=== PATIENT | male | born 1980 | race Caucasian/White ===

== ENCOUNTER 2017-10-16 09:28 | Emergency (ER) | payer OTHER ==
--- NOTE | 2017-10-16 11:00 | ER ---
Nurse's Notes [facility] Name: Jacinto Whitaker Age: 37 yrs Sex: Male : 1980 Arrival Date: 10/16/2017 Time: 09:31 Bed 7 Private MD: Diagnosis: Low back pain;Radiculopathy, lumbar region Presentation: 10/16 09:55 Presenting complaint: Patient states: Woke with low back pain 3 days ago, went to [facility] hb x 2, pain is getting worse. Pain radiates down right leg. Denies injury. Hx back sx 1 year ago. Transition of care: patient was not received from another setting of care. Onset of symptoms is unknown. Care prior to arrival: Medication(s) given: gabapentin 200 mg at 0800. 09:55 Method Of Arrival: Ambulatory 09:55 Acuity: DIANA 4 hb Historical: - Allergies: 09:58 No Known Allergies; hb - Home Meds: 09:58 metoprolol tartrate 100 mg Oral tab 1 tab once daily [Active]; Klonopin 0.5 mg Oral tab hb as needed [Active]; losartan 50 mg oral tab once daily [Active]; - PMHx: 09:58 Hypertension; Panic Attacks; hb - PSHx: 09:58 Back; hb - Immunization history:: Adult Immunizations up to date. - Social history:: Smoking status: Patient/guardian denies using tobacco. Screenin:20 Abuse screen: Denies threats or abuse. Denies injuries from another. Nutritional ph screening: No deficits noted. Tuberculosis screening: No symptoms or risk factors identified. Fall Risk None identified. Assessment: 10:40 General: Appears in no apparent distress. comfortable, slender, well groomed, Behavior ph is calm, cooperative, appropriate for age, Denies fever, feeling ill. Pain: Complains of pain in low back area and right low back Pain radiates to right leg. Neuro: Level of Consciousness is awake, alert, obeys commands, Oriented to person, place, time, situation, Denies paresthesias numbness. Cardiovascular: Capillary refill < 3 seconds in bilateral fingers toes Patient's skin is warm and dry. Respiratory: Airway is patent Respiratory effort is even, unlabored. Derm: Skin is intact, is healthy with good turgor, Skin is pink, warm \T\ dry. Musculoskeletal: Circulation, motion, and sensation intact. Range of motion: intact in all extremities, Swelling absent. 11:30 Reassessment: Patient appears in no apparent distress at this time. Patient and/or ph family updated on plan of care and expected duration. Pain level reassessed. Patient is alert, oriented x 3, equal unlabored respirations, skin warm/dry/pink. Pt discharged home. Vital Signs: 09:57 BP 134 / 89; Pulse 79; Resp 18; Temp 98; Pulse Ox 100% ; Weight 99.79 kg; Height 6 ft. hb (182.88 cm); Pain 10/10; 11:33 BP 128 / 78; Pulse 71; Resp 18; Temp 98.3; Pulse Ox 99% on R/A; ph 09:57 Body Mass Index 29.84 (99.79 kg, 182.88 cm) hb ED Course: 09:31 Patient arrived in ED. mr 09:56 Triage completed. hb 09:58 Arm band placed on right wrist. hb 10:20 Cait Manzo, RN is Primary Nurse. ph 10:20 Patient has correct armband on for positive identification. Bed in low position. Call ph light in reach. Side rails up X 1. Pulse ox on. NIBP on. 10:21 Frandy Edmond PA is PHCP. jr8 10:21 Vinicius Syed MD is Attending Physician. jr8 11:32 No provider procedures requiring assistance completed. Patient did not have IV access ph during this emergency room visit. Administered Medications: No medications were administered Outcome: 10:59 Discharge ordered by . jr8 11:32 Discharged to home ambulatory. ph 11:32 Condition: good 11:32 Discharge instructions given to patient, Instructed on discharge instructions, follow up and referral plans. medication usage, Demonstrated understanding of instructions, follow-up care, medications, Prescriptions given X 3. 11:33 Patient left the ED. ph Signatures: Monika Mesa mr Frandy Edmond PA PA jrCait Wesley RN RN Alexandra Gonzales RN RN Corrections: (The following items were deleted from the chart) 09:57 09:55 Presenting complaint: Patient states: Woke with sudden low back pain 3 days ago, hb went to chiro x 2, pain is getting worse. Pain radiates down right leg. Denies injury. Hx back sx hb
--- NOTE | 2017-10-16 11:00 | EDPHYS ---
Physician Documentation [facility] Name: Jacinto Whitaker Age: 37 yrs Sex: Male : 1980 Arrival Date: 10/16/2017 Time: 09:31 Bed 7 Private MD: ED Physician Vinicius Syed HPI: 10/16 11:12 This 37 yrs old Male presents to ER via Ambulatory with complaints of Back jr8 Pain. 11:12 The patient presents with pain that is acute, with no known mechanism of injury. The jr8 symptoms are located in the low back. Onset: The symptoms/episode began/occurred acutely, 3 day(s) ago, and became worse and became persistent. The pain radiates. Associated signs and symptoms: The patient has no apparent associated signs or symptoms. The problem was sustained from unknown cause. Modifying factors: The patient symptoms are alleviated by rest, specific position, the patient symptoms are aggravated by walking. Severity of symptoms: At their worst the symptoms were moderate, in the emergency department the symptoms have improved. The patient has not experienced similar symptoms in the past. The patient has not recently seen a physician. 11:12 Patient saw chiropractor 2 days ago. Had plain films completed along with adjustment jr8 but still with pain . Historical: - Allergies: 09:58 No Known Allergies; hb - Home Meds: 09:58 metoprolol tartrate 100 mg Oral tab 1 tab once daily [Active]; Klonopin 0.5 mg Oral tab hb as needed [Active]; losartan 50 mg oral tab once daily [Active]; - PMHx: 09:58 Hypertension; Panic Attacks; hb - PSHx: 09:58 Back; hb - Immunization history:: Adult Immunizations up to date. - Social history:: Smoking status: Patient/guardian denies using tobacco. ROS: 11:12 Eyes: Negative for injury, pain, redness, and discharge, ENT: Negative for injury, jr8 pain, and discharge, Neck: Negative for injury, pain, and swelling, Cardiovascular: Negative for chest pain, palpitations, and edema, Respiratory: Negative for shortness of breath, cough, wheezing, and pleuritic chest pain, Abdomen/GI: Negative for abdominal pain, nausea, vomiting, diarrhea, and constipation, MS/Extremity: Negative for injury and deformity, Skin: Negative for injury, rash, and discoloration, Neuro: Negative for headache, weakness, numbness, tingling, and seizure. 11:12 Back: Positive for decreased range of motion, pain with movement, radiated pain, of the low back area. Exam: 11:12 Cardiovascular: Regular rate and rhythm with a normal S1 and S2. No gallops, murmurs, jr8 or rubs. Normal PMI, no JVD. No pulse deficits. Respiratory: Lungs have equal breath sounds bilaterally, clear to auscultation and percussion. No rales, rhonchi or wheezes noted. No increased work of breathing, no retractions or nasal flaring. Abdomen/GI: Soft, non-tender, with normal bowel sounds. No distension or tympany. No guarding or rebound. No evidence of tenderness throughout. Skin: Warm, dry with normal turgor. Normal color with no rashes, no lesions, and no evidence of cellulitis. MS/ Extremity: Pulses equal, no cyanosis. Neurovascular intact. Full, normal range of motion. Neuro: Awake and alert, GCS 15, oriented to person, place, time, and situation. Cranial nerves II-XII grossly intact. Motor strength 5/5 in all extremities. Sensory grossly intact. Cerebellar exam normal. Normal gait. 11:12 Back: pain, that is moderate, ROM is painful, with rotation to the right, with rotation to the left, with flexion, normal spinal alignment noted, CVA tenderness, is absent, muscle spasm, is not present, Straight leg raises: of both lower extremities does not illicit pain, no vertebral tenderness noted . Vital Signs: 09:57 BP 134 / 89; Pulse 79; Resp 18; Temp 98; Pulse Ox 100% ; Weight 99.79 kg; Height 6 ft. hb (182.88 cm); Pain 10/10; 11:33 BP 128 / 78; Pulse 71; Resp 18; Temp 98.3; Pulse Ox 99% on R/A; ph 09:57 Body Mass Index 29.84 (99.79 kg, 182.88 cm) hb MDM: 10:21 Patient medically screened. jr8 10:58 Data reviewed: vital signs, nurses notes, and as a result, I will discharge patient. jr8 Data interpreted: Pulse oximetry: on room air is 100 %. Interpretation: normal. Counseling: I had a detailed discussion with the patient and/or guardian regarding: the historical points, exam findings, and any diagnostic results supporting the discharge/admit diagnosis, the need for outpatient follow up, a neurosurgeon, to return to the emergency department if symptoms worsen or persist or if there are any questions or concerns that arise at home. 11:12 ED course: Discussed with patient that he needs to rest with minimal lifting for the jr8 next 7-10 days. To utilize heating pads along with the prescribed medications. To f/u after that point if still in pain for MRI of low back . Administered Medications: No medications were administered Disposition: 13:28 Co-signature as Attending Physician, Vinicius Syed MD I agree with the assessment and kdr plan of care. Disposition: 10/16/17 10:59 Discharged to Home. Impression: Low back pain, Radiculopathy, lumbar region. - Condition is Stable. - Discharge Instructions: Back Pain, Adult, Back Exercises, [id number], Heat Therapy. - Prescriptions for Ibuprofen 800 mg Oral Tablet - take 1 tablet by ORAL route every 12 hours As needed take with food; 20 tablet. Cyclobenzaprine 10 mg Oral Tablet - take 1 tablet by ORAL route every 8 hours As needed; 30 tablet. Tramadol 50 mg Oral Tablet - take 1 tablet by ORAL route every 8 hours as needed; 20 tablet. - Medication Reconciliation Form, Thank You Letter, Antibiotic Education, Prescription Opioid Use, Work release form form. - Follow up: Private Physician; When: 7 - 10 days; Reason: Recheck today's complaints, Continuance of care, Re-evaluation by your physician. - Problem is new. - Symptoms have improved. Signatures: Vinicius Syed MD MD [facility] Frandy Edmond PA ME jr8 Cait Manzo RN RN Alexandra Gonzales, RN RN
== END 2017-10-16 11:33 | disposition home or self-care (01) ==
LOC: ER 09:28
DX: M54.16 Radiculopathy, lumbar region (principal); I10 Essential (primary) hypertension
CPT/HCPCS: 99283

== ENCOUNTER 2018-04-02 22:54 | Emergency (ER) | payer OTHER ==
[2018-04-02] MEDS ORDERED: NA CHLORIDE 0.9% 0 ML ONE (23:20)
[2018-04-02] MEDS ORDERED: NA CHLORIDE 0.9% 1,000 ML ONE (23:22)
[2018-04-02] MEDS ORDERED: ONDANSETRON 4 MG/2 ML VIAL ONE (23:24)
[2018-04-02] MEDS ORDERED: NA CHLORIDE 0.9% 500 ML ONE (23:37)
[2018-04-02] MEDS ORDERED: METOCLOPRAMIDE 10 MG/2mL INJ ONE (23:37)
[2018-04-02 23:53] LABS: Arterial Blood Carboxyhemoglob 1.1 % (0-1.5); Blood Gas Oxyhemoglobin 84.9 % (94-97)
[2018-04-03 00:22] LABS: Absolute Lymphocytes (CBC) 0.6 K/uL (0.7-4.9); Absolute Monocytes 0.8 K/uL (0.1-1.3); Absolute Neutrophil 8.1 K/uL (1.8-8.0); Basophils % 0.2 % (0-1.3); Eosinophils % 2.6 % (0-4.4); Hematocrit 49.4 % (39.6-49.0); Lymphocytes % 5.9 % (15.3-44.8); MCH 31.4 pg (27.0-35.0); MCV 89.9 fL (80-100); MPV 9.3 fL (7.6-11.3); Monocytes % 8.1 % (3.3-12.3)
[2018-04-03 00:40] LABS: Albumin 4.1 g/dL (3.4-5.0); Bilirubin Direct 0.2 mg/dL (0-0.2); Bilirubin Total 0.9 mg/dL (0.2-1.0); Potassium 3.9 mmol/L (3.5-5.1); Protein, Total 7.6 g/dL (6.4-8.2)
[2018-04-03] MEDS ORDERED: NA CHLORIDE 0.9% 1,000 ML ONE (00:56)
--- NOTE | 2018-04-03 02:11 | ER ---
Nurse's Notes [facility] Name: Jacinto Whitaker Age: 38 yrs Sex: Male : 1980 Arrival Date: 04/02/2018 Time: 22:54 Bed 26 Private MD: Nestor Siegel Diagnosis: Vomiting, unspecified;Diarrhea, unspecified;Dehydration Presentation: 04/02 23:08 Presenting complaint: Patient states: "I HAVE BEEN VOMITING EVERY 15 MINUTES. AND IT rv COMES AT BOTH ENDS.". Transition of care: patient was not received from another setting of care. Onset of symptoms was April 02, 2018 at 18:00. Risk Assessment: Do you want to hurt yourself or someone else? Patient reports no desire to harm self or others. Initial Sepsis Screen: Does the patient meet any 2 criteria? No. Patient's initial sepsis screen is negative. Does the patient have a suspected source of infection? No. Patient's initial sepsis screen is negative. Care prior to arrival: None. 23:08 Method Of Arrival: Ambulatory rv 23:08 Acuity: DIANA 3 rv Triage Assessment: 23:12 General: Appears in no apparent distress. uncomfortable, Behavior is calm, cooperative. rv Pain: Complains of pain in abdomen. Historical: - Allergies: 23:11 No Known Allergies; rv - Home Meds: 23:11 metoprolol tartrate 100 mg Oral tab 1 tab once daily [Active]; losartan 50 mg Oral tab rv once daily [Active]; Klonopin 0.5 mg Oral tab as needed [Active]; - PMHx: 23:11 Hypertension; Panic Attacks; rv - PSHx: 23:11 NECK SURGERY; Disc surgery; rv - Immunization history:: Adult Immunizations up to date. - Social history:: Smoking status: Patient/guardian denies using tobacco, never smoked. - Ebola Screening: : Patient negative for fever greater than or equal to 101.5 degrees Fahrenheit, and additional compatible Ebola Virus Disease symptoms Patient denies exposure to infectious person Patient denies travel to an Ebola-affected area in the 21 days before illness onset. Screenin:12 Abuse screen: Denies threats or abuse. Denies injuries from another. Nutritional rv screening: No deficits noted. Tuberculosis screening: No symptoms or risk factors identified. Fall Risk None identified. Assessment: 23:12 General: Appears in no apparent distress. uncomfortable, Behavior is calm, cooperative. rv Pain: Complains of pain in abdomen. Neuro: Level of Consciousness is awake, alert, obeys commands, Oriented to person, place, time, situation. Cardiovascular: Capillary refill < 3 seconds. Respiratory: Airway is patent. GI: Bowel sounds present X 4 quads. Abd is soft and non tender X 4 quads. : No signs and/or symptoms were reported regarding the genitourinary system. EENT: No signs and/or symptoms were reported regarding the EENT system. Derm: Skin is intact. 04/03 00:27 Reassessment: Patient appears in no apparent distress at this time. Patient and/or rv family updated on plan of care and expected duration. Pain level reassessed. Patient is alert, oriented x 3, equal unlabored respirations, skin warm/dry/pink. PATIENT FEELS BETTER. AWAITING LAB RESULTS. General:. 01:49 Reassessment: Patient appears in no apparent distress at this time. Patient and/or rv family updated on plan of care and expected duration. Pain level reassessed. Patient is alert, oriented x 3, equal unlabored respirations, skin warm/dry/pink. Vital Signs: 04/02 23:10 BP 106 / 77; Pulse 101; Pulse Ox 99% on R/A; Weight 95.25 kg (R); rv 23:10 Temp 97.7(O); rv 04/03 00:26 BP 111 / 73; Pulse 104; Pulse Ox 96% on R/A; rv 01:46 BP 93 / 66; Pulse 103; Pulse Ox 100% on R/A; rv ED Course: 04/02 22:54 Patient arrived in ED. am2 22:55 Nestor Siegel MD is Private Physician. am2 23:01 Sue Melgar FNP-C is [facility]. snw 23:01 Bradley Bain MD is Attending Physician. snw 23:10 Triage completed. rv 23:12 Patient has correct armband on for positive identification. Bed in low position. Call rv light in reach. Side rails up X 1. Pulse ox on. NIBP on. 23:13 Emesis basin given. rv 23:13 Inserted saline lock: 20 gauge in right antecubital area, using aseptic technique. rv Blood collected. 04/03 02:09 Nestor Siegel MD is Referral Physician. snw 02:20 IV discontinued, bleeding controlled, No redness/swelling at site. Pressure dressing rv applied. 02:20 No provider procedures requiring assistance completed. rv Administered Medications: 04/02 23:20 Drug: Zofran 4 mg Route: IVP; Site: right antecubital; rv 04/03 00:52 Follow up: Response: No adverse reaction; Nausea is decreased rv 04/02 23:21 Drug: NS 0.9% 1000 ml Route: IV; Rate: 1 bolus; Site: right antecubital; rv 04/03 00:53 Follow up: IV Status: Completed infusion rv 04/02 23:33 Drug: Reglan 10 mg Route: IVP; Site: right antecubital; rv 04/03 00:51 Follow up: Response: No adverse reaction rv 00:51 Drug: NS 0.9% 500 ml Route: IV; Rate: bolus; Site: right antecubital; rv Outcome: 02:10 Discharge ordered by . snw 02:20 Discharged to home ambulatory. rv 02:20 Condition: improved 02:20 Discharge instructions given to patient, Instructed on discharge instructions, follow up and referral plans. medication usage, Demonstrated understanding of instructions, follow-up care, medications, Prescriptions given X 2. 02:21 Patient left the ED. rv Signatures: Sue Melgar, SITE RELIABILITY ENGINEER-C SITE RELIABILITY ENGINEER-Csnw Ana Johnston am2 Reji Muir, RN RN rv
--- NOTE | 2018-04-03 02:11 | EDPHYS ---
Physician Documentation [facility] Name: Jacinto Whitaker Age: 38 yrs Sex: Male : 1980 Arrival Date: 04/02/2018 Time: 22:54 Bed 26 Private MD: Nestor Siegel ED Physician Bradley Bain HPI: 04/02 23:35 This 38 yrs old Male presents to ER via Ambulatory with complaints of snw Abdominal Pain, Nausea/Vomiting. 23:35 The patient presents with severe N/V/D since 0600. Onset: The symptoms/episode snw began/occurred suddenly, at 06:00. The symptoms do not radiate. Associated signs and symptoms: Pertinent positives: nausea, vomiting, and diarrhea, Pertinent negatives: fever. The symptoms are described as crampy. Severity of pain: At its worst the pain was very mild "sore". The patient has not experienced similar symptoms in the past. The patient has not recently seen a physician. no ill contacts, pt thinks he may have eaten something bad. Historical: - Allergies: 23:11 No Known Allergies; rv - Home Meds: 23:11 metoprolol tartrate 100 mg Oral tab 1 tab once daily [Active]; losartan 50 mg Oral tab rv once daily [Active]; Klonopin 0.5 mg Oral tab as needed [Active]; - PMHx: 23:11 Hypertension; Panic Attacks; rv - PSHx: 23:11 NECK SURGERY; Disc surgery; rv - Immunization history:: Adult Immunizations up to date. - Social history:: Smoking status: Patient/guardian denies using tobacco, never smoked. - Ebola Screening: : Patient negative for fever greater than or equal to 101.5 degrees Fahrenheit, and additional compatible Ebola Virus Disease symptoms Patient denies exposure to infectious person Patient denies travel to an Ebola-affected area in the 21 days before illness onset. ROS: 23:30 Constitutional: Negative for fever, chills, and weight loss, Eyes: Negative for injury, snw pain, redness, and discharge, ENT: Negative for injury, pain, and discharge, Neck: Negative for injury, pain, and swelling. 23:30 Cardiovascular: Negative for chest pain, palpitations, and edema, Respiratory: Negative for shortness of breath, cough, wheezing, and pleuritic chest pain, Abdomen/GI: Negative for abdominal pain, + severe nausea, vomiting, and diarrhea, no constipation, Back: Negative for injury and pain, : Negative for injury, bleeding, discharge, and swelling, MS/Extremity: Negative for injury and deformity, Skin: Negative for injury, rash, and discoloration, Neuro: Negative for headache, weakness, numbness, tingling, and seizure. 23:30 Cardiovascular: Positive for Exam: 23:27 Constitutional: This is a well developed, well nourished patient who is awake, alert, snw and in mild distress. Smells strongly of ketones Head/Face: Normocephalic, atraumatic. Eyes: Pupils equal round and reactive to light, extra-ocular motions intact. Lids and lashes normal. Conjunctiva and sclera are non-icteric and not injected. Cornea within normal limits. Periorbital areas with no swelling, redness, or edema. ENT: Nares patent. No nasal discharge, no septal abnormalities noted. Tympanic membranes are normal and external auditory canals are clear. Oropharynx with no redness, swelling, or masses, exudates, or evidence of obstruction, uvula midline. Mucous membranes moist. Neck: Trachea midline, no thyromegaly or masses palpated, and no cervical lymphadenopathy. Supple, full range of motion without nuchal rigidity, or vertebral point tenderness. No Meningismus. Chest/axilla: Normal chest wall appearance and motion. Nontender with no deformity. No lesions are appreciated. 23:27 Back: No spinal tenderness. No costovertebral tenderness. Full range of motion. Skin: Warm, dry with normal turgor. Normal color with no rashes, no lesions, and no evidence of cellulitis. MS/ Extremity: Pulses equal, no cyanosis. Neurovascular intact. Full, normal range of motion. Neuro: Awake and alert, GCS 15, oriented to person, place, time, and situation. Cranial nerves II-XII grossly intact. Motor strength 5/5 in all extremities. Sensory grossly intact. Cerebellar exam normal. Normal gait. 23:27 Cardiovascular: Rate: tachycardic, Heart sounds: normal. 23:27 Respiratory: the patient does not display signs of respiratory distress, Respirations: shallow respirations, that is moderate, Breath sounds: are clear throughout, tachypnea. 23:27 Abdomen/GI: Inspection: abdomen appears normal, Bowel sounds: normal, Palpation: abdomen is soft and non-tender, in all quadrants. Vital Signs: 23:10 BP 106 / 77; Pulse 101; Pulse Ox 99% on R/A; Weight 95.25 kg (R); rv 23:10 Temp 97.7(O); rv 04/03 00:26 BP 111 / 73; Pulse 104; Pulse Ox 96% on R/A; rv 01:46 BP 93 / 66; Pulse 103; Pulse Ox 100% on R/A; rv MDM: 04/02 23:14 Patient medically screened. w 04/03 02:08 Data reviewed: vital signs, nurses notes. Data interpreted: Pulse oximetry: on room air snw is 100 %. Interpretation: normal. Counseling: I had a detailed discussion with the patient and/or guardian regarding: the historical points, exam findings, and any diagnostic results supporting the discharge/admit diagnosis, lab results, the need for outpatient follow up, to return to the emergency department if symptoms worsen or persist or if there are any questions or concerns that arise at home. Response to treatment: the patient's symptoms have resolved after treatment, nausea gone, + po in ED. Special discussion: Based on the history and exam findings, there is no indication for further emergent testing or inpatient evaluation. I discussed with the patient/guardian the need to see the primary care provider for further evaluation of the symptoms. 04/02 23:16 Order name: Amylase, Serum; Complete Time: 00:41 snw 04/02 23:16 Order name: Basic Metabolic Panel; Complete Time: 00:41 w 04/02 23:16 Order name: CBC with Diff; Complete Time: 00:25 w 04/02 23:16 Order name: Creatinine for Radiology; Complete Time: 00:41 w 04/02 23:16 Order name: Hepatic Function; Complete Time: 00:41 w 04/02 23:16 Order name: Lipase; Complete Time: 00:41 w 04/02 23:16 Order name: Urine Microscopic Only; Complete Time: 02:18 w 04/02 23:27 Order name: ABG; Complete Time: 00:25 w 04/03 01:48 Order name: Urine Dipstick--Ancillary (enter results) ms 04/03 01:48 Order name: Urine Dipstick-Ancillary EDMS 04/02 23:16 Order name: IV Saline Lock; Complete Time: 23:21 snw 04/02 23:16 Order name: Labs collected and sent; Complete Time: 23:21 snw Administered Medications: 04/02 23:20 Drug: Zofran 4 mg Route: IVP; Site: right antecubital; rv 04/03 00:52 Follow up: Response: No adverse reaction; Nausea is decreased rv 04/02 23:21 Drug: NS 0.9% 1000 ml Route: IV; Rate: 1 bolus; Site: right antecubital; rv 04/03 00:53 Follow up: IV Status: Completed infusion rv 04/02 23:33 Drug: Reglan 10 mg Route: IVP; Site: right antecubital; rv 04/03 00:51 Follow up: Response: No adverse reaction rv 00:51 Drug: NS 0.9% 500 ml Route: IV; Rate: bolus; Site: right antecubital; rv Disposition: 04/03/18 02:10 Discharged to Home. Impression: Vomiting, unspecified, Diarrhea, unspecified, Dehydration. - Condition is Stable. - Discharge Instructions: Food Choices to Help Relieve Diarrhea, Adult, Dehydration, Adult, Diarrhea, Adult, Nausea and Vomiting, Adult, Rehydration, Adult. - Prescriptions for Bentyl 20 mg Oral Tablet - take 1 tablet by ORAL route every 6 hours As needed; 20 tablet. Zofran 4 mg Oral Tablet - take 1 tablet by ORAL route every 12 hours As needed; 20 tablet. - Work release form, Medication Reconciliation Form, Thank You Letter, Antibiotic Education, Prescription Opioid Use form. - Follow up: Nestor Siegel MD; When: 2 - 3 days; Reason: Recheck today's complaints, Continuance of care, Re-evaluation by your physician. Follow up: Emergency Department; When: As needed; Reason: Worsening of condition. Addendum: 04/04/2018 23:14 Co-signature as Attending Physician, Bradley Bain MD. g s Signatures: Dispatcher [employer] EDPR Sue Melgar, WASH OPERATOR-C WASH OPERATOR-Csnw Bradley Bain MD MD gs Vicente, Ronaldo, RN RN rv Corrections: (The following items were deleted from the chart) 04/02 23:35 23:30 Cardiovascular: Negative for chest pain, palpitations, and edema, Respiratory: snw Negative for shortness of breath, cough, wheezing, and pleuritic chest pain, Abdomen/GI: Negative for abdominal pain, nausea, vomiting, diarrhea, and constipation, Back: Negative for injury and pain, : Negative for injury, bleeding, discharge, and swelling, MS/Extremity: Negative for injury and deformity, Skin: Negative for injury, rash, and discoloration, Neuro: Negative for headache, weakness, numbness, tingling, and seizure, snw 04/03 02:21 02:10 04/03/2018 02:10 Discharged to Home. Impression: Vomiting, unspecified; Diarrhea, rv unspecified; Dehydration. Condition is Stable. Forms are Medication Reconciliation Form, Thank You Letter, Antibiotic Education, Prescription Opioid Use. Follow up: Nestor Siegel; When: 2 - 3 days; Reason: Recheck today's complaints, Continuance of care, Re-evaluation by your physician. Follow up: Emergency Department; When: As needed; Reason: Worsening of condition. snw
[2018-04-03 02:14] LABS: Urine Bacteria <20 /HPF (NONE SEEN); Urine Culture Reflex Order NOT NEEDED; Urine Mucus MOD /HPF (NONE SEEN); Urine RBC <5 /HPF (NONE SEEN)
[2018-04-03 02:36] LABS: Urine Blood NEGATIVE (NEG); Urine Glucose NEGATIVE (NEG); Urine Protein NEGATIVE (NEG); Urine pH 5.5 (5.0-7.0)
== END 2018-04-03 02:21 | disposition home or self-care (01) ==
LOC: ER 22:54
DX: R19.7 Diarrhea, unspecified (principal); I10 Essential (primary) hypertension; F41.0 Panic disorder [episodic paroxysmal anxiety]
CPT/HCPCS: 36415; 80048; 80076; 81003; 81015; 82150; 82805; 83690; 85025; 96361; 96374; 96375; 99284; J2405; J2765; J7030

== ENCOUNTER 2018-12-25 13:06 | Emergency (ER) | payer OTHER ==
[2018-12-25] MEDS ORDERED: TETRACAINE HCL 0.5% 4ML OPTH ONE (13:36)
[2018-12-25] MEDS ORDERED: FLUORESCEIN SODIUM 1 MG/WRAP ONE (13:37)
--- NOTE | 2018-12-25 14:01 | EDPHYS ---
Physician Documentation [facility] Name: Jacinto Whitaker Age: 38 yrs Sex: Male : 1980 Arrival Date: 12/25/2018 Time: 13:08 Bed 13 Private MD: Nestor Siegel ED Physician Nam Jefferson HPI: 12/25 13:56 This 38 yrs old Male presents to ER via Ambulatory with complaints of Eye rn Problem. 13:56 The patient sustained an abrasion. Onset: The symptoms/episode began/occurred just rn prior to arrival. Duration: the symptoms are continuous. Aggravated by nothing. Alleviated by nothing. Severity of symptoms: At their worst the symptoms were mild in the emergency department the symptoms are unchanged. The patient has not experienced similar symptoms in the past. The patient has not recently seen a physician. REports mowing yard, something hit him in eye, no protection, doesn't wear contacts, a little blurry on lateral field of view, feels a little gritty sensation.. Historical: - Allergies: 13:14 No Known Allergies; tw2 - Home Meds: 13:11 metoprolol tartrate 100 mg Oral tab 1 tab once daily [Active]; Klonopin 0.5 mg Oral tab tw2 as needed [Active]; losartan 50 mg Oral tab once daily [Active]; - PMHx: 13:11 Hypertension; Panic Attacks; tw2 - PSHx: 13:11 NECK SURGERY; Disc surgery; tw2 - Immunization history:: Adult Immunizations Last tetanus immunization: < 5 years ago. - Social history:: Smoking status: . - Ebola Screening: : No symptoms or risks identified at this time. - Family history:: not pertinent. - Hospitalizations: : No recent hospitalization is reported. ROS: 13:56 Constitutional: Negative for fever, chills, and weight loss, Eyes: + left eye injury rn and blurred vision Exam: 13:56 Constitutional: This is a well developed, well nourished patient who is awake, alert, rn and in no acute distress. Head/Face: Normocephalic, atraumatic. Eyes: PERRL, mild erythema of lateral conjunctiva, + fluorescein uptake at border of cornea and sclera, neg cammie's. Vital Signs: 13:15 BP 125 / 81; Pulse 81; Resp 16; Temp 98.3; Pulse Ox 98% ; Weight 97.52 kg; Height 6 ft. tw2 0 in. (182.88 cm); Pain 3/10; 13:15 Body Mass Index 29.16 (97.52 kg, 182.88 cm) tw2 MDM: 13:22 Patient medically screened. rn 13:56 Differential diagnosis: Corneal abrasion of Foreign body in. Data reviewed: vital rn signs, nurses notes, and as a result, I will discharge patient. Counseling: I had a detailed discussion with the patient and/or guardian regarding: the historical points, exam findings, and any diagnostic results supporting the discharge/admit diagnosis, the need for outpatient follow up, to return to the emergency department if symptoms worsen or persist or if there are any questions or concerns that arise at home. Special discussion: I discussed with the patient/guardian in detail that at this point there is no indication for admission to the hospital. It is understood, however, that if the symptoms persist or worsen the patient needs to return immediately for re-evaluation. Based on the history and exam findings, there is no indication for further emergent testing or inpatient evaluation. I discussed with the patient/guardian the need to see the opthamologist for further evaluation of the symptoms. Administered Medications: 13:34 Drug: Tetracaine Drops 0.5 % 1 drops Route: Ophthalmic; Site: left eye; la1 13:34 Drug: Fluorescein Strip 1 strip Route: Ophthalmic; Site: left eye; la1 Disposition: 12/25/18 14:00 Discharged to Home. Impression: Injury of conjunctiva and corneal abrasion without foreign body, left eye. - Condition is Stable. - Discharge Instructions: Corneal Abrasion. - Prescriptions for Vigamox 0.5 % Ophthalmic Drops - instill 1 drop by OPHTHALMIC route every 8 hours for 7 days; 5 milliliter. - Medication Reconciliation Form, Thank You Letter, Antibiotic Education, Prescription Opioid Use form. - Follow up: Criselda Andres MD; When: As needed; Reason: Recheck today's complaints, Re-evaluation by your physician. - Problem is new. - Symptoms have improved. Signatures: Nam Jefferson MD MD rn Attema, Lee, RN RN la1 Janiya Shook RN RN tw2 Jaspreet Gresham RN RN tr5 Corrections: (The following items were deleted from the chart) 14:08 14:00 12/25/2018 14:00 Discharged to Home. Impression: Injury of conjunctiva and tr5 corneal abrasion without foreign body, left eye. Condition is Stable. Forms are Medication Reconciliation Form, Thank You Letter, Antibiotic Education, Prescription Opioid Use. Follow up: Criselda Andres; When: As needed; Reason: Recheck today's complaints, Re-evaluation by your physician. Problem is new. Symptoms have improved. rn
--- NOTE | 2018-12-25 14:01 | ER ---
Nurse's Notes [facility] Name: Jacinto Whitaker Age: 38 yrs Sex: Male : 1980 Arrival Date: 12/25/2018 Time: 13:08 Bed 13 Private MD: Nestor Siegel Diagnosis: Injury of conjunctiva and corneal abrasion without foreign body, left eye Presentation: 12/25 13:09 Presenting complaint: Patient states: i was mowing the yard this morning about 2 hours tw2 ago and i think a debris may have bounced off and i think a piece of my eye is gone, my vision is hazy on the left side, its my LEFT eye. Transition of care: patient was not received from another setting of care. Onset of symptoms was December 25, 2018. Risk Assessment: Do you want to hurt yourself or someone else? Patient reports no desire to harm self or others. Initial Sepsis Screen: Does the patient meet any 2 criteria? No. Patient's initial sepsis screen is negative. Does the patient have a suspected source of infection? No. Patient's initial sepsis screen is negative. Care prior to arrival: None. 13:09 Method Of Arrival: Ambulatory tw2 13:09 Acuity: DIANA 3 tw2 Triage Assessment: 13:11 General: Appears in no apparent distress. well groomed, Behavior is calm, cooperative, tw2 appropriate for age. Pain: Complains of pain in left eye. Historical: - Allergies: 13:14 No Known Allergies; tw2 - Home Meds: 13:11 metoprolol tartrate 100 mg Oral tab 1 tab once daily [Active]; Klonopin 0.5 mg Oral tab tw2 as needed [Active]; losartan 50 mg Oral tab once daily [Active]; - PMHx: 13:11 Hypertension; Panic Attacks; tw2 - PSHx: 13:11 NECK SURGERY; Disc surgery; tw2 - Immunization history:: Adult Immunizations Last tetanus immunization: < 5 years ago. - Social history:: Smoking status: . - Ebola Screening: : No symptoms or risks identified at this time. - Family history:: not pertinent. - Hospitalizations: : No recent hospitalization is reported. Screenin:15 Abuse screen: Denies threats or abuse. Denies injuries from another. Nutritional tw2 screening: No deficits noted. Tuberculosis screening: No symptoms or risk factors identified. Fall Risk None identified. Assessment: 13:16 General: Appears in no apparent distress. Behavior is calm, cooperative. Pain: tw2 Complains of pain in left eye. Neuro: Level of Consciousness is awake, alert, obeys commands, Oriented to person, place, time, situation. Cardiovascular: Capillary refill < 3 seconds Patient's skin is warm and dry. Respiratory: Airway is patent Respiratory effort is even, unlabored. EENT: Sclera/Cornea are reddened in outer aspect of conjuctiva of left eye w/ abrasion noted on outer aspect of conjuctiva of left eye. Vital Signs: 13:15 BP 125 / 81; Pulse 81; Resp 16; Temp 98.3; Pulse Ox 98% ; Weight 97.52 kg; Height 6 ft. tw2 0 in. (182.88 cm); Pain 3/10; 13:15 Body Mass Index 29.16 (97.52 kg, 182.88 cm) tw2 ED Course: 13:08 Patient arrived in ED. rg4 13:08 Nestor Siegel MD is Private Physician. rg4 13:11 Triage completed. tw2 13:11 Arm band placed on. tw2 13:16 Bed in low position. Call light in reach. tw2 13:18 Ramon Ford RN is Primary Nurse. la1 13:22 Nam Jefferson MD is Attending Physician. rn 14:00 Criselda Andres MD is Referral Physician. rn 14:07 No provider procedures requiring assistance completed. Patient did not have IV access tr5 during this emergency room visit. Administered Medications: 13:34 Drug: Tetracaine Drops 0.5 % 1 drops Route: Ophthalmic; Site: left eye; la1 13:34 Drug: Fluorescein Strip 1 strip Route: Ophthalmic; Site: left eye; la1 Outcome: 14:00 Discharge ordered by . rn 14:08 Discharged to home ambulatory. tr5 14:08 Condition: stable 14:08 Discharge instructions given to patient, Instructed on discharge instructions, follow up and referral plans. medication usage, Demonstrated understanding of instructions, follow-up care, medications, Prescriptions given X 1. 14:08 Patient left the ED. tr5 Signatures: Nam Jefferson MD MD rn Attema, Lee, RN RN la1 Janiya Shook RN RN tw2 Xiomy Silva rg4 Jaspreet Gresham, RN RN tr5
== END 2018-12-25 14:08 | disposition home or self-care (01) ==
LOC: ER 13:06
DX: S05.02XA Injury of conjunctiva and corneal abrasion without foreign body, left eye, initial encounter (principal); I10 Essential (primary) hypertension; W20.8XXA Other cause of strike by thrown, projected or falling object, initial encounter; Y93.H2 Activity, gardening and landscaping; Y92.007 Garden or yard of unspecified non-institutional (private) residence as the place of occurrence of the external cause
CPT/HCPCS: 99283

== ENCOUNTER 2019-02-10 08:28 | Emergency (ER) | payer OTHER ==
[2019-02-10] MEDS ORDERED: NA CHLORIDE 0.9% 1,000 ML ONE (08:56)
[2019-02-10] MEDS ORDERED: ONDANSETRON 4 MG/2 ML VIAL ONE (08:56)
[2019-02-10] MEDS ORDERED: MORPHINE 4 MG/ML SYR ONE (08:56)
[2019-02-10 09:08] LABS: Absolute Lymphocytes (CBC) 1.8 K/uL (0.7-4.9); Basophils % 1.1 % (0-1.3); Hematocrit 44.7 % (39.6-49.0); Lymphocytes % 31.5 % (15.3-44.8); MPV 9.1 fL (7.6-11.3); RBC Red Blood Cell Count 5.01 M/uL (4.33-5.43)
[2019-02-10 09:15] LABS: Potassium 3.8 mmol/L (3.5-5.1)
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
[2019-02-10] MEDS ORDERED: MEPERIDINE HCL 25 MG/0.5 ML ONE (10:45)
[2019-02-10] MEDS ORDERED: HYDROCODONE/APAP 10/325 TAB ONE (10:45)
== END 2019-02-10 11:17 | disposition home or self-care (01) ==
LOC: ER 08:28
DX: S30.1XXA Contusion of abdominal wall, initial encounter (principal); S61.411A Laceration without foreign body of right hand, initial encounter; V49.40XA Driver injured in collision with unspecified motor vehicles in traffic accident, initial encounter; M79.671 Pain in right foot; M79.604 Pain in right leg; I10 Essential (primary) hypertension; Z79.01 Long term (current) use of anticoagulants
CPT/HCPCS: 36415; 70450; 71260; 72125; 74177; 80048; 85025; 96374; 96375; 99285; J2175; J2405; J7030; Q9967

== ENCOUNTER 2020-01-17 16:20 | Emergency (ER) | payer OTHER ==
[2020-01-17] MEDS ORDERED: TETRACAINE HCL 0.5% 4ML OPTH ONE (17:21)
[2020-01-17] MEDS ORDERED: FLUORESCEIN SODIUM 1 MG/WRAP ONE (17:21)
--- NOTE | 2020-01-17 17:54 | EDPHYS ---
Physician Documentation [facility] Name: Jacinto Whitaker Age: 40 yrs Sex: Male : 1980 Arrival Date: 01/17/2020 Time: 16:21 Bed 12 Private MD: ED Physician Vinicius Syed HPI: 01/16 17:36 This 40 yrs old Male presents to ER via Ambulatory with complaints of Eye jr8 Injury. 17:36 The patient is experiencing pain, redness, tearing. Onset: The symptoms/episode jr8 began/occurred acutely, today. Duration: the symptoms are continuous. Aggravated by rubbing, Alleviated by nothing. Associated signs and symptoms: Pertinent positives: None. Patient does not utilize any form of vision correction. Severity of symptoms: At their worst the symptoms were mild in the emergency department the symptoms are unchanged. It is unknown whether or not the patient has had similar symptoms in the past. The patient has not recently seen a physician. Pain to left eye that started suddenly today. Denies FB flying into eye or other trauma. Historical: - Allergies: 16:25 No Known Allergies; ll1 - PMHx: 16:25 Hypertension; Panic Attacks; ll1 - PSHx: 16:25 NECK SURGERY; Disc surgery; right calcaneous surgery; ll1 - Immunization history:: Flu vaccine is not up to date. - Social history:: Smoking status: Patient denies any tobacco usage or history of. Patient uses alcohol, only on a social basis. Patient/guardian denies using street drugs. ROS: 17:36 ENT: Negative for injury, pain, and discharge, Neck: Negative for injury, pain, and jr8 swelling, Cardiovascular: Negative for chest pain, palpitations, and edema, Respiratory: Negative for shortness of breath, cough, wheezing, and pleuritic chest pain, Abdomen/GI: Negative for abdominal pain, nausea, vomiting, diarrhea, and constipation, Back: Negative for injury and pain, MS/Extremity: Negative for injury and deformity, Skin: Negative for injury, rash, and discoloration, Neuro: Negative for headache, weakness, numbness, tingling, and seizure. 17:36 Eyes: Positive for pain, redness, tearing, of the outer aspect of conjuctiva of left eye and iris of left eye. Exam: 17:36 Visual Acuity: Visual acuity is within normal limits. jr8 17:36 Head/Face: Normocephalic, atraumatic. ENT: Nares patent. No nasal discharge, no septal abnormalities noted. Tympanic membranes are normal and external auditory canals are clear. Oropharynx with no redness, swelling, or masses, exudates, or evidence of obstruction, uvula midline. Mucous membranes moist. Cardiovascular: Regular rate and rhythm with a normal S1 and S2. No gallops, murmurs, or rubs. Normal PMI, no JVD. No pulse deficits. Respiratory: Lungs have equal breath sounds bilaterally, clear to auscultation and percussion. No rales, rhonchi or wheezes noted. No increased work of breathing, no retractions or nasal flaring. Skin: Warm, dry with normal turgor. Normal color with no rashes, no lesions, and no evidence of cellulitis. MS/ Extremity: Pulses equal, no cyanosis. Neurovascular intact. Full, normal range of motion. Neuro: Awake and alert, GCS 15, oriented to person, place, time, and situation. Cranial nerves II-XII grossly intact. Motor strength 5/5 in all extremities. Sensory grossly intact. Cerebellar exam normal. Normal gait. 17:36 Eyes: Periorbital structures: appear normal, Pupils: equal, round, and reactive to light and accomodation, Extraocular movements: intact throughout, Conjunctiva: chemosis, that is mild, in left eye, at 3 o'clock, Corneas: a fluorescein strip employed to appreciate the findings, pooling defect noted to 3 o'clock position of cornea about 3 mm in diameter . Vital Signs: 16:26 BP 134 / 93; Pulse 80; Resp 17; Temp 98.1; Pulse Ox 98% ; Pain 3/10; ll1 MDM: 16:59 Patient medically screened. jr8 17:52 Data reviewed: vital signs, nurses notes, and as a result, I will discharge patient. jr8 Data interpreted: Pulse oximetry: on room air is 98 %. Interpretation: normal. Counseling: I had a detailed discussion with the patient and/or guardian regarding: the historical points, exam findings, and any diagnostic results supporting the discharge/admit diagnosis, the need for outpatient follow up, an opthalmologist, to return to the emergency department if symptoms worsen or persist or if there are any questions or concerns that arise at home. Administered Medications: 17:35 Drug: Tetracaine Drops 0.5 % 1 drops Route: Ophthalmic; Site: left eye; ss 17:35 Drug: Fluorescein Strip 1 strip Route: Ophthalmic; Site: left eye; ss Disposition: 01/17 06:08 Co-signature as Attending Physician, Vinicius Syed MD I agree with the assessment and kdr plan of care. Disposition: 01/17/20 17:53 Discharged to Home. Impression: Chemosis left eye, Marginal corneal ulcer, left eye. - Condition is Stable. - Discharge Instructions: Corneal Ulcer. - Prescriptions for Tobrex 0.3 % Ophthalmic ointment - apply 1 inch ribbon by OPHTHALMIC route 3 times per day for 7 days; 1 tube. - Medication Reconciliation Form, Thank You Letter, Antibiotic Education, Prescription Opioid Use form. - Follow up: Criselda Andres MD; When: 1 - 2 days; Reason: Recheck today's complaints, Continuance of care, Re-evaluation by your physician. - Problem is new. - Symptoms have improved. Signatures: Vinicius Syed MD MD [facility] Karina Ibrahim RN RN Frandy Edmond PA PA jr8 Noah Joyce RN RN ll1 Corrections: (The following items were deleted from the chart) 01/16 18:02 17:53 01/17/2020 17:53 Discharged to Home. Impression: Chemosis left eye; Marginal ss corneal ulcer, left eye. Condition is Stable. Forms are Medication Reconciliation Form, Thank You Letter, Antibiotic Education, Prescription Opioid Use. Follow up: Criselda Andres; When: 1 - 2 days; Reason: Recheck today's complaints, Continuance of care, Re-evaluation by your physician. Problem is new. Symptoms have improved. jr8
--- NOTE | 2020-01-17 17:54 | ER ---
Nurse's Notes [facility] Name: Jacinto Whitaker Age: 40 yrs Sex: Male : 1980 Arrival Date: 01/17/2020 Time: 16:21 Bed 12 Private MD: Diagnosis: Chemosis left eye;Marginal corneal ulcer, left eye Presentation: 01/16 16:26 Chief complaint: Patient states: Left eye redness and irritation for 1 day. Noticed a ll1 small chunk out of it. No known trauma or foreign body. Coronavirus screen: Proceed with normal triage. Patient denies a cough. Patient denies shortness of breath or difficulty breathing. Patient denies measured and/or subjective temperature greater than 100.4F prior to today's visit. Patient denies travel on a cruise ship or to a country the [facility] currently lists as an affected area. Patient denies contact with known and/or suspected case of COVID-19. Ebola Screen: Patient denies travel to an Ebola-affected area in the 21 days before illness onset. Mechanism of Injury: No Mechanism of Injury. The patient denies any loss of vision. Initial Sepsis Screen: Does the patient meet any 2 criteria? No. Patient's initial sepsis screen is negative. Risk Assessment: Do you want to hurt yourself or someone else? Patient reports no desire to harm self or others. Onset of symptoms was January 17, 2020. 16:26 Method Of Arrival: Ambulatory ll1 16:26 Acuity: DIANA 4 ll1 Historical: - Allergies: 16:25 No Known Allergies; ll1 - PMHx: 16:25 Hypertension; Panic Attacks; ll1 - PSHx: 16:25 NECK SURGERY; Disc surgery; right calcaneous surgery; ll1 - Immunization history:: Flu vaccine is not up to date. - Social history:: Smoking status: Patient denies any tobacco usage or history of. Patient uses alcohol, only on a social basis. Patient/guardian denies using street drugs. Screenin:32 Abuse screen: Denies threats or abuse. Nutritional screening: No deficits noted. ll1 Tuberculosis screening: No symptoms or risk factors identified. Fall Risk None identified. Total Hearn Fall Scale indicates No Risk (0-24 pts). Assessment: 16:30 General: Appears in no apparent distress. Behavior is calm, cooperative, appropriate ll1 for age. Pain: Complains of pain in l eye. Neuro: No deficits noted. Cardiovascular: No deficits noted. Respiratory: No deficits noted. GI: No deficits noted. EENT: Eyes redness left eye. Sclera/Cornea are reddened in outer aspect of conjuctiva of left eye Reports pain L eye. 17:30 Reassessment: No changes from previously documented assessment. Patient and/or family ll1 updated on plan of care and expected duration. Pain level reassessed. Patient is alert, oriented x 3, equal unlabored respirations, skin warm/dry/pink. Vital Signs: 16:26 BP 134 / 93; Pulse 80; Resp 17; Temp 98.1; Pulse Ox 98% ; Pain 3/10; ll1 ED Course: 16:21 Patient arrived in ED. as 16:26 Arm band placed on. ll1 16:28 Triage completed. ll1 16:30 Noah Joyce, JAH is Primary Nurse. ll1 16:32 Patient has correct armband on for positive identification. Bed in low position. Call ll1 light in reach. Side rails up X 1. 16:59 [facility] jr8 16:59 Vinicius Syed MD is Attending Physician. jr8 17:52 Criselda Andres MD is Referral Physician. jr8 18:02 No provider procedures requiring assistance completed. Patient did not have IV access ss during this emergency room visit. Administered Medications: 17:35 Drug: Tetracaine Drops 0.5 % 1 drops Route: Ophthalmic; Site: left eye; ss 17:35 Drug: Fluorescein Strip 1 strip Route: Ophthalmic; Site: left eye; ss Outcome: 17:53 Discharge ordered by . jr8 18:02 Discharged to home ambulatory. ss 18:02 Condition: good 18:02 Discharge instructions given to patient, Instructed on discharge instructions, follow up and referral plans. medication usage, Demonstrated understanding of instructions, follow-up care, medications, Prescriptions given X 1. 18:02 Patient left the ED. ss Signatures: Fransisca Chen Shelby RN RN Frandy Edmond PA PA jr8 Noah Joyce RN RN ll1 Corrections: (The following items were deleted from the chart) 16:28 16:26 Acuity: DIANA 3 ll1 ll1
[2020-01-17 18:08] VITALS: BP 134/93; TEMP 98.1; O2SAT 98
== END 2020-01-17 18:02 | disposition home or self-care (01) ==
LOC: ER 16:20
DX: H16.042 Marginal corneal ulcer, left eye (principal); H11.422 Conjunctival edema, left eye; I10 Essential (primary) hypertension
CPT/HCPCS: 99283